=== PATIENT | male | born 1995 | race Caucasian/White ===

== ENCOUNTER → 2021-01-08 13:29 | Outpatient (CLI) | payer BC, SELFPAY ==
--- NOTE | 2021-01-08 13:44 | CT_ITS ---
PROCEDURE: CT SOFT TISSUE NECK W CON CLINICAL HISTORY: NECK MASS Knot on right neck, just under jaw x2yrs Gradually getting bigger No pain No prior COMPARISON: No exams were available for comparison TECHNIQUE: Oral Contrast: None IV Contrast: 75 mL Isovue 370 Axial images obtained with sagittal and coronal reformats. All CT scans at the facility use one or more dose reduction, viz: automated exposure control, ma/kV adjustment per patient size (including targeted exams where dose is matched to indication, i.e. head), or iterative reconstruction technique. FINDINGS: There is mild prominence of the palatine tonsils. There is a 6 x 4 by 4.8 cm hypodense mass beginning posterior to the angle of the mandible and anterior to the sternocleidomastoid extending inferiorly for length of 6 cm to the level of the thyroid cartilage. 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 This is displacing the submandibular gland anteriorly and the carotid artery and jugular vein posteriorly. The internal density measures approximately thirty Hounsfield units which could represent some internal proteinaceous content. Scattered small lymph nodes are present in the neck on both sides. The epiglottis and glottic region have an unremarkable appearance. There are some small submental lymph nodes. The lung apices are clear. 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 No evidence of superinfection or obvious fistula formation. Dictated by: Mika Robledo MD 01/10/2021 12:16 Mika Robledo MD in [facility] 01/10/2021 12:16
== END ==
PROVIDERS: Visit Provider Family Medicine
DX: R22.1 Localized swelling, mass and lump, neck (principal)
CPT/HCPCS: 70491; Q9967

== ENCOUNTER → 2021-01-29 09:31 | Outpatient (CLI) | payer BC, SELFPAY ==
--- NOTE | 2021-01-29 09:40 | US_ITS ---
PROCEDURE: US FNA OTHER CLINICAL INDICATION: MASS OF RT SIDE OF NECK COMPARISON: CT CT SOFT TISSUE NECK W CON from 01/08/2021 FINDINGS: Ultrasound performed before the biopsy of the cystic mass in the right neck confirms a hypo to slightly the hypoechoic mass filled with debris. Following time-out procedure and obtaining informed consent under aseptic conditions and local anesthesia with 1 percent buffered lidocaine, a 21 gauge needle was inserted into the lesion. Approximately 20 cc of brownish fluid was aspirated. At the into the aspiration an additional FNA was performed. The collection was not completely aspirated. A specimen was sent to cytology for evaluation. Culture and sensitivity also sent. Those results are not made available at this time. Cytology: Negative for malignancy. Compatible with benign squamous epithelial lined cyst IMPRESSION: Uneventful ultrasound-guided FNA and aspiration of right neck mass as described above. Negative for malignancy. Compatible with benign squamous/epithelial lined cyst Dictated by: Mika Robledo MD 02/14/2021 15:52 Mika Robledo MD in [facility] 02/14/2021 15:52
== END ==
PROVIDERS: Visit Provider Otolaryngology
DX: R22.1 Localized swelling, mass and lump, neck (principal)
CPT/HCPCS: 10005; 76536; 87070; 87205

== ENCOUNTER → 2021-04-21 12:04 | Outpatient (CLI) | payer BC, SELFPAY | PROVIDERS: Visit Provider Otolaryngology | DX: R22.1 Localized swelling, mass and lump, neck (principal); Z01.812 Encounter for preprocedural laboratory examination; Z11.52 Encounter for screening for COVID-19 | CPT/HCPCS: U0003 ==

== ENCOUNTER 2021-04-23 06:06 | Day surgery (SDC) | payer BC, SELFPAY ==
[2021-04-17 13:21] VITALS: BMI 44.6
[2021-04-23] VITALS (10 sets, daily range): BP systolic 109–136; BP diastolic 62–83; PULSE 49–56; RESP 12–18; TEMP 36.2–37; O2SAT 94–98
[2021-04-23 06:39] LABS: Basophils % 0.6 % (0.1-2.0); Eosinophils # 0.2 K/mm3 (0.0-0.4); Eosinophils % 3.5 % (0.1-12.0); Hematocrit 40.7 % (42.0-52.0); Hemoglobin 13.8 g/dL (14.1-18.0); Lymphocytes # 1.3 K/mm3 (0.7-4.5); Lymphocytes % 19.3 % (10-50); Mean Corpuscular HGB Conc 33.8 g/dL (31.8-35.4); Mean Corpuscular Hemoglobin 26.8 pg (27.0-31.2); Mean Corpuscular Volume 79.2 fl (80-94); Monocytes # 0.4 K/mm3 (0.1-1.0); Monocytes % 6.1 % (1.7-9.3); Neutrophils # 4.8 K/mm3 (1.8-7.8); Neutrophils % 70.4 % (37.0-80.0); Platelet Count 208 K/mm3 (142-424); Red Blood Count 5.14 M/mm3 (4.60-6.20); Red Cell Distribution Width 13.9 % (11.5-17.5); White Blood Count 6.9 K/mm3 (4.8-10.8)
--- NOTE | 2021-04-23 06:58 | P.PN_ITS ---
[facility] Anesthesia Checklist - Structural Data Admitted From: Home Planned Operative Procedure/s: excision neck cyst Consent for Planned Operative Procedure(s) Verified: Yes - Additional verifications Anesthesia Reactions: No Hx Blood Transfusions: No Blood Transfusion Reaction: No - Airway Assessment C-Spine Mobility Assessed: Yes TMJ Mobility Assessed: Yes Dentition: Good Dentition - Neurological Assessment Level of Consciousness: Awake, Alert, Appropriate - Anesthesia Plan Anesthesia Risk discussed: Yes Anesthesia Plan: Verified ASA Class: II Anesthesia Type: General [facility] History I have reviewed the patient's past medical history: Yes Medical History: Denies:: Cancer, Diabetes Mellitus Type 1, Diabetes Mellitus Type 2, Internal Pacemaker, MRSA, Seizures *Have you ever received a pneumonia vaccine?: No *Have you received a flu vaccine this season?: No Other Medical History: Denies: Blood Transfusion Reaction Anesthesia experience/problems:: none Other Surgeries: Yes: No Previous Surgery. No: Pacemaker Amputation: No Fractures: No - *Social History Smoking Status: Heavy tobacco smoker Tobacco Type: smokeless tobacco # Packs/Day (cigarettes): 1 Alcohol Intake: never Alcohol Intake Frequency:: holidays/special occasions only Substance Use Type: denies use *Occupational Status:: employed Housing: house *Travel in the last 8 weeks: None Family Hx:: No significant family history
--- NOTE | 2021-04-23 09:13 | HMH.ANESI ---
[facility] Anesthesia Record Part I Intake, IV Amount: 1,500 Estimated blood loss (mL): 0 Urine output (mL): 0 Blood Pressure: 125/71 SaO2: 98 Pulse Rate: 54 Respiratory Rate: 12 Temperature: 97.1 F Patient is:: Awake, Stable Stable to PACU at:: 09:10
--- NOTE | 2021-04-23 09:46 | HMH.OPNOTE ---
Date of procedure: 04/23/21 Pre-op Diagnosis:: 1. Cystic lesion level 1 and 2 right neck 5 x 6 cm in diameter Post-op Diagnosis:: 1. 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 A submandibular incision was marked out in level 1 and 2 of the right upper neck and skin subcutaneous tissue and platysma were incised. A large fat pad was encountered and once the fat pad was encountered the cystic lesion that had been identified preoperatively was identified. Using a [place] forcep the lesion was retracted and using delicate dissection procedures it was gradually mobilized it lay between the external and internal carotid arteries just above the carotid bifurcation and extended into the level 1 and 2 area from that point. It was carefully mobilized and eventually it was decompressed and removed in entirety using multiple dissecting techniques. There was no damage to any of the nerves or arteries in the in the field. Blood loss for all the procedure was 5 cc and stopped with the bipolar cautery. Surgicel snow was placed in the defect. Platysma was closed with 2-0 chromic sutures and the skin was closed with 2-0 nylon sutures a Dermabond dressing was applied along with a Band-Aid dressing and the patient was sent to recovery in good general condition. Condition: stable Disposition: PACU Complications:: none
--- NOTE | 2021-04-23 09:51 | PC.NURSE ---
0928-WILLIAM Franklin assumed care of pt at this time, vss, detailed report given per WILLIAM Ibanez, pt drinking ice water at this time w/out difficulty 0938-detailed report given to WILLIAM Arora 0940-pt transported to post op via stretcher w/tom rails up and left in care of WILLIAM Arora with bed locked in lowest position, vss, pt stable
--- NOTE | 2021-04-23 10:07 | HMH.ANESII ---
[facility] Anesthesia Record Part II Discharge Time: 09:40 Destination: Surgical Day Care (OP Surgery) PACU nurse assessment reviewed?: Yes Patient Condition:: Good Anesthesia Complications:: None Swallowing reflex intact?: Yes Cyanosis?: No Blood Pressure: 135/69 Pulse Rate: 51 Temperature: 97.2 F Mental Status: Alert & Oriented Pain level:: 0 Nausea and/or vomitting:: None Intake, IV Amount: 0
== END 2021-04-23 10:11 | disposition home or self-care (01) ==
LOC: OR 06:07
PROVIDERS: Visit Provider Otolaryngology
PROC: (CPT 42810; principal; 2021-04-23 07:30)
DX: Q18.0 Sinus, fistula and cyst of branchial cleft (principal)
CPT/HCPCS: 42810; 85025; 96374; 96375; J2405; J2710

== ENCOUNTER 2023-09-27 08:07 | Emergency (ER) | payer BC, SELFPAY ==
[2023-09-27 08:10] VITALS: BP 142/96; PULSE 62; RESP 18; TEMP 36.9; O2SAT 96; BMI 46.0
[2023-09-27 08:21] LABS: Coronavirus 19, PCR Not Detected (NotDetected); Influenza A, PCR Not Detected (NotDetected); Influenza B, PCR Not Detected (NotDetected)
--- NOTE | 2023-09-27 08:23 | PC.NURSE ---
Dr. Candelario at [facility] for pt eval
--- NOTE | 2023-09-27 08:30 | HMH.EDGENADL ---
Discharge Plan Disposition Patient Disposition: Home, Self-Care Condition: Good Prescriptions Prescriptions: No Action No Known Home Medications Referrals Follow up/Referrals: Provider,Referral, [Primary Care Provider] - See instructions Activity Restrictions/Add. Instructions Additional Instructions/Restrictions: You were evaluated in the emergency department today. You were negative for COVID and flu, but it is suspected that you have another upper respiratory viral infection. Take Tylenol and ibuprofen at home as needed for pain and fever. You may also take [id number] medications such as DayQuil, just make sure that you are not doubling up on your acetaminophen. Follow-up with your primary care provider for reassessment. Return to the emergency department for new or worsening symptoms. Clinical Impressions Clinical Impression: Viral URI with cough Stand Alone Forms Stand Alone Forms: Work/School Release Instructions Patient Instructions: DI for Viral Upper Respiratory Infection -- Adult Discharge ED Provider: Miranda Candelario General Adult HPI General Chief complaint: Upper Respiratory Infection Stated complaint: SOA, cough, fever, body aches, congestion, diarrea Time Seen by Provider: 09/27/23 08:15 Mode of Arrival: Ambulatory Source of Information: Patient Limitations: No Limitations Description of Symptoms (Recalled from ER Triage Doc. by RN): diarhea, chest congestion, sore throat, productive cough yellow started yesterda History of Present Illness HPI narrative: This patient is a 28-year-old male who denies significant past medical history presenting to the emergency department for evaluation with requesting a COVID-19 test. He reports that he was sent here from work. He denies any other concerns or complaints. He states that he has been feeling sick for 2 days now with cough, congestion, sore throat, nausea, body aches, and diarrhea. He has been taking DayQuil at home with minimal improvement. No other concerns noted at this time. Related Data Home Medications Medication Instructions Recorded Confirmed No Known Home Medications 01/13/21 05/19/21 Allergies Allergy/AdvReac Type Severity Reaction Status Date / Time No Known Allergies Allergy Verified 05/19/21 09:57 [facility] Disclaimer: The information contained in this section may have been updated after the patient was seen, as this information can be updated by other users. Social History Smoking Status: Current every day smoker tobacco type: smokeless tobacco second hand exposure: No alcohol intake: never substance use type: denies use current occupational status: employed Travel in the last 8 weeks: None housing: house current occupational exposures/hazards: No caffeine: No ROS Obtained: Yes All systems reviewed & no additional complaints except as documented Physical Exam General General appearance: alert and in no apparent distress Head Head exam: atraumatic and normocephalic Eye Eye exam: Present normal appearance, PERRL and EOMI ENT ENT exam: Present normal oropharynx, mucous membranes moist, normal external ear exam and other (Nasal congestion) Neck Neck exam: Present normal inspection, full ROM and trachea midline; Absent tenderness Chest Chest inspection: Present normal inspection and symmetric chest wall rise; Absent tenderness Respiratory Respiratory exam: Present normal lung sounds bilaterally; Absent respiratory distress, wheezes, stridor or accessory muscle use Cardiovascular Cardiovascular exam: Present regular rate and normal rhythm Abdominal Exam Abdominal exam: Present soft; Absent distention, tenderness or guarding Extremities Exam Extremities exam: Present normal inspection, full ROM and normal capillary refill; Absent tenderness or edema Back Exam Back exam: Present normal inspection and full ROM; Absent tender
[2023-09-27 08:31] VITALS: BP 128/78; PULSE 64; O2SAT 97
[2023-09-27 09:01] VITALS: BP 129/69; PULSE 52; RESP 18; O2SAT 97
[2023-09-27 09:17] VITALS: BP 129/69; PULSE 64; RESP 18; TEMP 36.7
== END 2023-09-27 09:19 | disposition home or self-care (01) ==
PROVIDERS: Emergency Provider Emergency Medicine
DX: R11.0 Nausea (principal); R19.7 Diarrhea, unspecified; J02.9 Acute pharyngitis, unspecified; J06.9 Acute upper respiratory infection, unspecified; R05.9 Cough, unspecified; F17.290 Nicotine dependence, other tobacco product, uncomplicated
CPT/HCPCS: 87636; 99283